=== PATIENT | male | born 1975 | race Native Hawaiian/Other Pacific Islander ===

== ENCOUNTER → 2017-08-04 06:34 | Outpatient (CLI) | payer OTHER, BC | END | disposition home or self-care (01) | LOC: AMB 06:34 | DX: Z04.1 Encounter for examination and observation following transport accident (principal) ==

== ENCOUNTER 2017-08-04 07:25 | Outpatient (CLI) | payer OTHER, BC | END 2017-08-04 08:04 | disposition short-term general hospital (02) | LOC: AMB 07:25 | DX: R07.89 Other chest pain (principal); M25.551 Pain in right hip; V49.88XA Car occupant (driver) (passenger) injured in other specified transport accidents, initial encounter; Y92.488 Other paved roadways as the place of occurrence of the external cause | CPT/HCPCS: A0425; A0427 ==

== ENCOUNTER 2017-08-04 08:15 | Emergency (ER) | payer OTHER, BC ==
[~2017-08-04] VITALS: Ht 165.1 cm; Wt 90.7 kg
[2017-08-04 08:05] VITALS: TEMP 99.9
[2017-08-04 08:44] LABS: PLATELET COUNT 335 K/uL (142-355)
[2017-08-04 09:23] LABS: POTASSIUM 3.6 mmol/L (3.6-5.2)
[2017-08-04 11:15] VITALS: BP 126/76
== END 2017-08-04 11:42 | disposition short-term general hospital (02) ==
LOC: ED 08:15
PROC: 0T9B70Z Drainage of Bladder with Drainage Device, Via Natural or Artificial Opening (ICD-10-PCS; principal; 2017-08-04)
DX: S32.019A Unspecified fracture of first lumbar vertebra, initial encounter for closed fracture (principal); S32.434A Nondisplaced fracture of anterior column [iliopubic] of right acetabulum, initial encounter for closed fracture; S32.444A Nondisplaced fracture of posterior column [ilioischial] of right acetabulum, initial encounter for closed fracture; R00.0 Tachycardia, unspecified; V49.3XXA Car occupant (driver) (passenger) injured in unspecified nontraffic accident, initial encounter
CPT/HCPCS: 51702; 80053; 80307; 80320; 81000; 85027; 93005; 96365; 96372; 96375; 99285; J0696; J1650; J1885; J2060; J2175; J2405

== ENCOUNTER 2017-08-04 11:41 | Outpatient (CLI) | payer OTHER, BC | END 2017-08-04 13:00 | disposition short-term general hospital (02) | LOC: AMB 11:41 | DX: S32.019A Unspecified fracture of first lumbar vertebra, initial encounter for closed fracture (principal); S32.434A Nondisplaced fracture of anterior column [iliopubic] of right acetabulum, initial encounter for closed fracture; S32.444A Nondisplaced fracture of posterior column [ilioischial] of right acetabulum, initial encounter for closed fracture; R00.0 Tachycardia, unspecified | CPT/HCPCS: A0425; A0427 ==

== ENCOUNTER 2018-06-11 12:57 | Outpatient (CLI) | payer OTHER | END 2018-06-11 22:14 | disposition home or self-care (01) | LOC: CT 12:57 | DX: S32.409A Unspecified fracture of unspecified acetabulum, initial encounter for closed fracture (principal) ==

== ENCOUNTER 2018-06-17 14:19 | Outpatient (CLI) | payer OTHER | END 2018-06-17 23:34 | disposition home or self-care (01) | LOC: RAD 14:19 | DX: Z01.818 Encounter for other preprocedural examination (principal) ==

== ENCOUNTER 2020-04-16 17:00 | Emergency (ER) | payer OTHER ==
[~2020-04-16] VITALS: Ht 177.8 cm; Wt 90.7 kg
[2020-04-16 17:29] LABS: POTASSIUM 4.2 mmol/L (3.6-5.2); SODIUM 143 mmol/L (136-145)
[2020-04-16 17:34] LABS: PLATELET COUNT 502 K/uL (142-355)
[2020-04-16 17:45] LABS: PARTIAL THROMBOPLASTIN TIME 26.8 SECONDS (24.5-33.6)
[2020-04-16 20:15] VITALS: TEMP 99
[2020-04-16 21:00] VITALS: BP 101/61
== END 2020-04-16 21:00 | disposition still patient (30) ==
LOC: ED 17:00
PROVIDERS: Hospitalist
PROC: 0T9B70Z Drainage of Bladder with Drainage Device, Via Natural or Artificial Opening (ICD-10-PCS; principal; 2020-04-16)
DX: R40.4 Transient alteration of awareness (principal); T40.1X1A Poisoning by heroin, accidental (unintentional), initial encounter; T42.4X1A Poisoning by benzodiazepines, accidental (unintentional), initial encounter; S73.004A Unspecified dislocation of right hip, initial encounter; Z03.818 Encounter for observation for suspected exposure to other biological agents ruled out; R06.02 Shortness of breath; Z98.890 Other specified postprocedural states; Y92.89 Other specified places as the place of occurrence of the external cause
CPT/HCPCS: 36415; 36600; 51702; 80053; 80307; 80320; 82550; 82553; 82805; 82962; 83605; 83880; 84484; 85007; 85027; 85610; 85730; 87040; 87635; 93005; 96360; 96361; 96365; 96366; 96375; 99285; J1956; J2405; J3370; U0003

== ENCOUNTER 2020-07-18 12:50 | Outpatient (CLI) | payer OTHER | END 2020-07-18 19:34 | disposition home or self-care (01) | LOC: RAD 12:50 | PROVIDERS: ATTEND Orthopaedic Surgery Orthopaedic Trauma | DX: M25.551 Pain in right hip (principal); Z96.649 Presence of unspecified artificial hip joint ==

== ENCOUNTER 2020-11-07 20:28 | Emergency (ER) | payer OTHER ==
[~2020-11-07] VITALS: Ht 177.8 cm; Wt 90.7 kg
[2020-11-07 20:29] VITALS: TEMP 99.1
[2020-11-07 20:57] LABS: PLATELET COUNT 159 K/uL (142-355)
[2020-11-07 21:48] LABS: PARTIAL THROMBOPLASTIN TIME 22.5 SECONDS (24.5-33.6)
[2020-11-07 22:22] LABS: POTASSIUM 2.9 mmol/L (3.6-5.2); SODIUM 143 mmol/L (136-145)
[2020-11-08 01:50] VITALS: BP 147/80
== END 2020-11-08 02:15 | disposition short-term general hospital (02) ==
LOC: ED 20:28
PROVIDERS: Emergency Medicine
PROC: 0T9B70Z Drainage of Bladder with Drainage Device, Via Natural or Artificial Opening (ICD-10-PCS; principal; 2020-11-07)
PROC: 0BH17EZ Insertion of Endotracheal Airway into Trachea, Via Natural or Artificial Opening (ICD-10-PCS; 2020-11-07)
PROC: 5A1935Z Respiratory Ventilation, Less than 24 Consecutive Hours (ICD-10-PCS; 2020-11-07)
DX: S72.091A Other fracture of head and neck of right femur, initial encounter for closed fracture (principal); S32.491A Other specified fracture of right acetabulum, initial encounter for closed fracture; S72.391A Other fracture of shaft of right femur, initial encounter for closed fracture; S22.41XA Multiple fractures of ribs, right side, initial encounter for closed fracture; F13.10 Sedative, hypnotic or anxiolytic abuse, uncomplicated; E87.6 Hypokalemia; R41.0 Disorientation, unspecified; J98.11 Atelectasis; Z11.52 Encounter for screening for COVID-19; Z98.890 Other specified postprocedural states; V58.0XXA Driver of pick-up truck or van injured in noncollision transport accident in nontraffic accident, initial encounter; Y92.89 Other specified places as the place of occurrence of the external cause
CPT/HCPCS: 31500; 36415; 51702; 80053; 80307; 80320; 81000; 83880; 84484; 85027; 85610; 85730; 87635; 93005; 94003; 94760; 96360; 96361; 96365; 96366; 96375; 96376; 99285; J0330; J1885; J2060; J2175; J2250; J2405; J3490; U0003

== ENCOUNTER 2021-08-02 15:04 | Outpatient (CLI) | payer OTHER | END 2021-08-02 19:28 | disposition home or self-care (01) | LOC: RAD 15:04 | PROVIDERS: ATTEND Registered Nurse | DX: R07.81 Pleurodynia (principal) ==

== ENCOUNTER 2021-12-20 09:59 | Outpatient (CLI) | payer OTHER | END 2021-12-20 19:20 | disposition home or self-care (01) | LOC: LABW 09:59 → US 09:59 | PROVIDERS: ATTEND Internal Medicine Gastroenterology | DX: B18.2 Chronic viral hepatitis C (principal); R94.5 Abnormal results of liver function studies | CPT/HCPCS: 36415; 80074; 80307; 81256; 82390; 83516; 86038; 87902 ==

== ENCOUNTER 2022-05-25 10:41 | Outpatient (CLI) | payer OTHER | END 2022-05-25 22:33 | disposition home or self-care (01) | LOC: RAD 10:41 | PROVIDERS: ATTEND Registered Nurse | DX: R07.1 Chest pain on breathing (principal) | CPT/HCPCS: 93005 ==